=== PATIENT | male | born 2000 | race Hispanic/Latino ===

== ENCOUNTER 2022-09-07 21:22 | Emergency (ER) | payer OTHER, BC ==
[2022-09-07] MEDS ORDERED: Lidocaine 1% w/Epinephrine 1:100K 20 ML VIAL ONE (23:20)
[2022-09-07] MEDS ORDERED: Bacitracin 1 PK ONE (23:49)
== END 2022-09-07 23:50 | disposition home or self-care (01) ==
LOC: ERS 21:22
DX: S81.852A Open bite, left lower leg, initial encounter (principal); W54.0XXA Bitten by dog, initial encounter
CPT/HCPCS: 12001

== ENCOUNTER 2022-09-19 17:58 | Emergency (ER) | payer BC, SELFPAY | END 2022-09-19 18:09 | disposition home or self-care (01) | LOC: ERS 17:58 | DX: S81.802D Unspecified open wound, left lower leg, subsequent encounter (principal); W54.0XXD Bitten by dog, subsequent encounter ==